=== PATIENT | male | born 1985 | race Caucasian/White ===

== ENCOUNTER 2018-01-24 01:48 | Emergency (ER) | payer MEDICAID ==
[2018-01-24] MEDS: DIPHTH/TET/ACEL PERTUSS (ADULT) 0.5 ML VIAL IM* (04:20)
== END 2018-01-24 04:45 | disposition home or self-care (01) ==
LOC: FTE 01:48
DX: S91.332A Puncture wound without foreign body, left foot, initial encounter (principal); F17.210 Nicotine dependence, cigarettes, uncomplicated; W45.0XXA Nail entering through skin, initial encounter; Y92.9 Unspecified place or not applicable; Z23 Encounter for immunization
CPT/HCPCS: 90471; 90715; 99283-25